=== PATIENT | female | born 1930 | race Caucasian/White ===

== ENCOUNTER 2018-01-15 22:37 | Inpatient (IN) ==
[2018-01-16] MEDS ORDERED: SODIUM CHLORIDE 0.9% 1,000 ML IV STA (00:13)
[2018-01-16] MEDS ORDERED: DILTIAZEM 50 MG/10 ML VIAL IV STA (00:14)
[2018-01-16 00:30] LABS: INR 1.8; PT Patient Result 18.7 SECS; Partial Thromboplastin Time 31.8 SECS (0-40)
[2018-01-16 00:41] LABS: Alanine Aminotransferase 18 U/L (13-56); Albumin 3.3 G/DL (3.4-5.0); Alkaline Phosphatase 115 U/L (45-117); Aspartate Amino Transferase 23 U/L (0-37); Bilirubin,Total < 0.39 MG/DL (0.2-1.0); Blood Urea Nitrogen 18 MG/DL (7-18); Calcium 8.8 MG/DL (8.5-10.1); Glucose 136 MG/DL (74-106); Osmolality,Calculated 286.1 MOS/KG (273-304); Potassium 3.7 MMOL/L (3.5-5.1); Sodium 142 MMOL/L (136-145); Total Protein 7.2 G/DL (6.4-8.3); Troponin I Only < 0.015 NG/ML (0.00-0.045)
[2018-01-16 00:42] LABS: Basophils # 0.1 10*3/uL (0.0-0.2); Basophils % 0.7 % (0.0-0.8); Eosinophils # 0.1 10*3/uL (0.0-0.87); Hematocrit 36.2 VOL% (35.7-47.0); Hemoglobin 11.3 GM/DL (12.0-16.0); Immature Granulocytes % 0.6 %; Immature Granulocytes Absolute 0.04 #; Lymphocytes # 1.3 10*3/uL (1.4-4.0); Lymphocytes % 17.7 % (21.3-54.2); Mean Corpuscular HGB Conc 31.2 GM/DL (32-36); Mean Corpuscular Hemoglobin 25 PG (27-34); Mean Corpuscular Volume 80.6 FL (87-102); Mean Platelet Volume 10.3 FL (9.6-12.0); Monocytes # 0.7 10*3/uL (0.11-0.8); Monocytes % 9.6 % (1.7-12.7); Neutrophils % 70.4 % (38.7-73.9); Platelet Count 314 T/CUMM (130-400); Red Blood Count 4.49 MC/CUMM (3.8-5.5); Red Cell Distribution Width 18.2 % (9.3-17.3); White Blood Count 7.1 T/CUMM (4-12)
[2018-01-16] MEDS ORDERED: DILTIAZEM 50 MG/10 ML VIAL IV ONE (00:58)
[2018-01-16] MEDS ORDERED: ONDANSETRON 4 MG/2 ML VIAL IV PRN (02:19)
[2018-01-16] MEDS ORDERED: ACETAMINOPHEN 325 MG TABLET PO PRN (02:19)
[2018-01-16] MEDS: DILTIAZEM 30 MG TABLET PO SCH ×4 (05:57→23:44)
[2018-01-16] MEDS: LEVOTHYROXINE 25 MCG TABLET PO SCH (05:57)
[2018-01-16 06:06] LABS: Basophils % 0.7 % (0.0-0.8); Eosinophils # 0.1 10*3/uL (0.0-0.87); Eosinophils % 1.7 % (0.00-10.9); Hematocrit 31.8 VOL% (35.7-47.0); Hemoglobin 9.7 GM/DL (12.0-16.0); Immature Granulocytes % 0.3 %; Immature Granulocytes Absolute 0.02 #; Lymphocytes # 1.1 10*3/uL (1.4-4.0); Lymphocytes % 17.8 % (21.3-54.2); Mean Corpuscular HGB Conc 30.5 GM/DL (32-36); Mean Corpuscular Hemoglobin 25 PG (27-34); Mean Corpuscular Volume 80.9 FL (87-102); Mean Platelet Volume 9.6 FL (9.6-12.0); Monocytes # 0.6 10*3/uL (0.11-0.8); Monocytes % 10.1 % (1.7-12.7); Neutrophils # 4.1 10*3/uL (1.4-7.4); Neutrophils % 69.4 % (38.7-73.9); Platelet Count 263 T/CUMM (130-400); Red Blood Count 3.93 MC/CUMM (3.8-5.5)
[2018-01-16 06:26] LABS: INR 1.8; PT Patient Result 18.5 SECS
[2018-01-16 06:44] LABS: Albumin 2.9 G/DL (3.4-5.0); Bilirubin,Total 0.5 MG/DL (0.2-1.0); Calcium 8.1 MG/DL (8.5-10.1); Osmolality,Calculated 290.6 MOS/KG (273-304); Potassium 3.9 MMOL/L (3.5-5.1); Total Protein 6.2 G/DL (6.4-8.3)
[2018-01-16] MEDS: METOPROLOL TARTRATE 25 MG TABLET PO SCH ×2 (09:52→20:27)
[2018-01-16] MEDS: PANTOPRAZOLE 40 MG TABLET PO SCH (09:52)
[2018-01-16] MEDS: DIGOXIN 0.125 MG TABLET PO SCH (17:26)
[2018-01-17 05:24] LABS: Basophils # 0.1 10*3/uL (0.0-0.2); Basophils % 0.9 % (0.0-0.8); Eosinophils # 0.2 10*3/uL (0.0-0.87); Eosinophils % 3.7 % (0.00-10.9); Hematocrit 30.1 VOL% (35.7-47.0); Hemoglobin 9.3 GM/DL (12.0-16.0); Immature Granulocytes % 0.2 %; Immature Granulocytes Absolute 0.01 #; Lymphocytes # 1.4 10*3/uL (1.4-4.0); Lymphocytes % 24.2 % (21.3-54.2); Mean Corpuscular HGB Conc 30.9 GM/DL (32-36); Mean Corpuscular Hemoglobin 25 PG (27-34); Mean Corpuscular Volume 80.3 FL (87-102); Mean Platelet Volume 10.2 FL (9.6-12.0); Monocytes # 0.6 10*3/uL (0.11-0.8); Monocytes % 10.3 % (1.7-12.7); Neutrophils # 3.4 10*3/uL (1.4-7.4); Neutrophils % 60.7 % (38.7-73.9); Platelet Count 244 T/CUMM (130-400); Red Blood Count 3.75 MC/CUMM (3.8-5.5); Red Cell Distribution Width 18.6 % (9.3-17.3); White Blood Count 5.6 T/CUMM (4-12)
[2018-01-17 05:30] LABS: INR 1.7; PT Patient Result 18.1 SECS
[2018-01-17] MEDS: DILTIAZEM 30 MG TABLET PO SCH ×3 (05:36→18:09)
[2018-01-17] MEDS: LEVOTHYROXINE 25 MCG TABLET PO SCH (05:36)
[2018-01-17 05:42] LABS: Osmolality,Calculated 291.4 MOS/KG (273-304); Potassium 3.8 MMOL/L (3.5-5.1)
[2018-01-17] MEDS: DIGOXIN 0.125 MG TABLET PO SCH (09:09)
[2018-01-17] MEDS: PANTOPRAZOLE 40 MG TABLET PO SCH (09:10)
[2018-01-17] MEDS: METOPROLOL TARTRATE 25 MG TABLET PO SCH ×2 (09:10→21:32)
[2018-01-18] MEDS: DILTIAZEM 30 MG TABLET PO SCH ×5 (01:56→23:28)
[2018-01-18] MEDS: LEVOTHYROXINE 25 MCG TABLET PO SCH (05:22)
[2018-01-18 05:55] LABS: INR 1.7; PT Patient Result 17.3 SECS
[2018-01-18] MEDS: PANTOPRAZOLE 40 MG TABLET PO SCH (08:37)
[2018-01-18] MEDS: DIGOXIN 0.125 MG TABLET PO SCH (08:37)
[2018-01-18] MEDS: METOPROLOL TARTRATE 25 MG TABLET PO SCH ×2 (08:37→21:29)
[2018-01-19 04:51] LABS: Basophils % 0.6 % (0.0-0.8); Eosinophils # 0.2 10*3/uL (0.0-0.87); Eosinophils % 3.4 % (0.00-10.9); Hematocrit 29.4 VOL% (35.7-47.0); Hemoglobin 9.2 GM/DL (12.0-16.0); Immature Granulocytes % 0.4 %; Immature Granulocytes Absolute 0.03 #; Lymphocytes # 1.6 10*3/uL (1.4-4.0); Lymphocytes % 22.8 % (21.3-54.2); Mean Corpuscular HGB Conc 30.6 GM/DL (32-36); Mean Corpuscular Hemoglobin 25 PG (27-34); Mean Corpuscular Volume 80.1 FL (87-102); Mean Platelet Volume 9.7 FL (9.6-12.0); Monocytes # 0.7 10*3/uL (0.11-0.8); Monocytes % 10.3 % (1.7-12.7); Neutrophils # 4.5 10*3/uL (1.4-7.4); Neutrophils % 62.5 % (38.7-73.9); Platelet Count 258 T/CUMM (130-400); Red Blood Count 3.67 MC/CUMM (3.8-5.5); Red Cell Distribution Width 18.6 % (9.3-17.3); White Blood Count 7.1 T/CUMM (4-12)
[2018-01-19 05:21] LABS: Alanine Aminotransferase 16 U/L (13-56); Albumin 2.7 G/DL (3.4-5.0); Alkaline Phosphatase 94 U/L (45-117); Aspartate Amino Transferase 20 U/L (0-37); Bilirubin,Total < 0.39 MG/DL (0.2-1.0); Blood Urea Nitrogen 17 MG/DL (7-18); Calcium 8.2 MG/DL (8.5-10.1); Glucose 115 MG/DL (74-106); Osmolality,Calculated 292.6 MOS/KG (273-304); Potassium 3.4 MMOL/L (3.5-5.1); Sodium 146 MMOL/L (136-145); Total Protein 5.7 G/DL (6.4-8.3)
[2018-01-19] MEDS: DILTIAZEM 30 MG TABLET PO SCH ×2 (05:26→12:12)
[2018-01-19] MEDS: LEVOTHYROXINE 25 MCG TABLET PO SCH (05:27)
[2018-01-19] MEDS ORDERED: POTASSIUM CHLORIDE 20 MEQ TABLET PO ONE (07:06)
[2018-01-19] MEDS: DIGOXIN 0.125 MG TABLET PO SCH (08:29)
[2018-01-19] MEDS: PANTOPRAZOLE 40 MG TABLET PO SCH (08:29)
[2018-01-19] MEDS: METOPROLOL TARTRATE 25 MG TABLET PO SCH (08:29)
[2018-01-19 11:34] VITALS: BP 122/56
== END 2018-01-19 13:55 | disposition home or self-care (01) | DRG 813 ==
LOC: N.ED 22:37 → SUATTDRO 01-16 02:19 → N.EDINP 01-16 02:19 → N.TELES 01-16 04:42
PROVIDERS: ADMIT Internal Medicine; ATTEND Internal Medicine

== ENCOUNTER 2018-12-22 23:16 | Inpatient (IN) ==
[2018-12-23 00:12] LABS: Basophils % 0.2 % (0.0-0.8); Eosinophils # 0.1 10*3/uL (0.0-0.87); Eosinophils % 0.6 % (0.00-10.9); Hematocrit 36.9 VOL% (35.7-47.0); Hemoglobin 11.6 GM/DL (12.0-16.0); Immature Granulocytes % 0.6 %; Immature Granulocytes Absolute 0.05 #; Lymphocytes # 0.7 10*3/uL (1.4-4.0); Lymphocytes % 7.5 % (21.3-54.2); Mean Corpuscular HGB Conc 31.4 GM/DL (32-36); Mean Corpuscular Hemoglobin 27 PG (27-34); Mean Corpuscular Volume 84.6 FL (87-102); Mean Platelet Volume 9.3 FL (9.6-12.0); Monocytes # 0.6 10*3/uL (0.11-0.8); Monocytes % 6.8 % (1.7-12.7); Neutrophils # 7.3 10*3/uL (1.4-7.4); Neutrophils % 84.3 % (38.7-73.9); Platelet Count 286 T/CUMM (130-400); Red Blood Count 4.36 MC/CUMM (3.8-5.5); Red Cell Distribution Width 16.1 % (9.3-17.3); White Blood Count 8.6 T/CUMM (4-12)
[2018-12-23 00:18] LABS: Alanine Aminotransferase 16 U/L (13-56); Albumin 3.1 G/DL (3.4-5.0); Alkaline Phosphatase 92 U/L (45-117); Aspartate Amino Transferase 17 U/L (0-37); Blood Urea Nitrogen 13 MG/DL (7-18); Calcium 8.9 MG/DL (8.5-10.1); Glucose 159 MG/DL (74-106); Potassium 3.2 MMOL/L (3.5-5.1); Sodium 136 MMOL/L (136-145); Total Protein 7.5 G/DL (6.4-8.3)
[2018-12-23 00:21] LABS: INR 2.3; Partial Thromboplastin Time 33.1 SECS (0-40)
[2018-12-23 00:31] LABS: PT Patient Result 24.8 SECS
[2018-12-23] MEDS ORDERED: ACETAMINOPHEN 500 MG TABLET PO STA (00:40)
[2018-12-23] MEDS ORDERED: SODIUM CHLORIDE 0.9% 1,000 ML IV STA ×2 (00:40→02:44)
[2018-12-23] MEDS ORDERED: POTASSIUM CHLORIDE 20 MEQ PACK PO STA (01:44)
[2018-12-23 02:19] LABS: Apearance,Urine CLEAR (Clear); Bilirubin,Urine Negative (Negative); Blood, Urine Negative (Negative); Glucose,Urine (UA) Negative (Negative); Hyaline Casts,Urine 4 /LPF (0-3); Ketones,Urine Negative (Negative); Mucus,Urine Occasional /LPF (Occasional); Nitrite,Urine Negative (Negative); Protein,Urine Negative; RBC,Urine 1 /HPF (0-4); Urine Color Yellow (Yellow); Urine Urobilinogen < 2.0 EU/DL (0.2-1.0); WBC,Urine 1 /HPF (0-6)
[2018-12-23] MEDS ORDERED: ACETAMINOPHEN 325 MG TABLET PO PRN (04:36)
[2018-12-23] MEDS ORDERED: MAGNESIUM SULF RIDER 2 GM in PREMIX 1 EACH IV ONE (04:36)
[2018-12-23] MEDS: SODIUM CHLORIDE 0.9% 1,000 ML IV SCH ×2 (04:57→16:11)
[2018-12-23] MEDS ORDERED: cefTRIAXone 1,000 MG in SYRINGE 1 EACH IV SCH (05:00)
[2018-12-23] MEDS: ASPIRIN EC 81 MG TABLET PO SCH (08:35)
[2018-12-23] MEDS: METOPROLOL TARTRATE 25 MG TABLET PO SCH ×2 (08:36→21:04)
[2018-12-23] MEDS ORDERED: AZITHROMYCIN 250 MG TABLET PO SCH (09:00)
[2018-12-23] MEDS: POTASSIUM CHLORIDE 20 MEQ TABLET PO SCH ×2 (11:40→20:42)
[2018-12-23] MEDS ORDERED: DIGOXIN 0.125 MG TABLET PO SCH (13:00)
[2018-12-23] MEDS ORDERED: WARFARIN 2.5 MG TABLET PO SCH (18:00)
[2018-12-23] MEDS ORDERED: LORATADINE 10 MG TABLET PO ONE (20:24)
[2018-12-24 06:11] LABS: Basophils % 0.4 % (0.0-0.8); Eosinophils # 0.1 10*3/uL (0.0-0.87); Eosinophils % 1.4 % (0.00-10.9); Hematocrit 29.3 VOL% (35.7-47.0); Hemoglobin 9.2 GM/DL (12.0-16.0); Immature Granulocytes % 0.6 %; Immature Granulocytes Absolute 0.03 #; Lymphocytes # 1.2 10*3/uL (1.4-4.0); Lymphocytes % 23.2 % (21.3-54.2); Mean Corpuscular HGB Conc 31.4 GM/DL (32-36); Mean Corpuscular Hemoglobin 27 PG (27-34); Mean Corpuscular Volume 86.2 FL (87-102); Mean Platelet Volume 9.9 FL (9.6-12.0); Monocytes # 0.6 10*3/uL (0.11-0.8); Monocytes % 12.7 % (1.7-12.7); Neutrophils # 3.1 10*3/uL (1.4-7.4); Neutrophils % 61.7 % (38.7-73.9); Platelet Count 225 T/CUMM (130-400); Red Cell Distribution Width 16.6 % (9.3-17.3)
[2018-12-24 06:19] LABS: INR 1.9; PT Patient Result 20.1 SECS; Partial Thromboplastin Time 33.2 SECS (0-40)
[2018-12-24] MEDS: SODIUM CHLORIDE 0.9% 1,000 ML IV SCH ×2 (06:24→23:31)
[2018-12-24 06:43] LABS: Calcium 7.5 MG/DL (8.5-10.1); Potassium 3.3 MMOL/L (3.5-5.1)
[2018-12-24] MEDS: POTASSIUM CHLORIDE 20 MEQ TABLET PO SCH ×2 (08:51→20:39)
[2018-12-24] MEDS: ASPIRIN EC 81 MG TABLET PO SCH (08:51)
[2018-12-24] MEDS: LEVOTHYROXINE 25 MCG TABLET PO SCH (08:51)
[2018-12-24] MEDS: METOPROLOL TARTRATE 25 MG TABLET PO SCH ×2 (08:51→20:38)
[2018-12-24] MEDS ORDERED: NON-FORMULARY MEDICATION (Potassium Chloride [Potassium Chloride] 10 MEQ) PO SCH (09:00)
[2018-12-24] MEDS: PIPERACILLIN/TAZOBACTAM 3,375 MG in SODIUM CHLORIDE 0.9% 100 ML IV SCH ×2 (11:13→18:29)
[2018-12-24] MEDS: DIGOXIN 0.125 MG TABLET PO SCH (13:42)
[2018-12-24] MEDS: WARFARIN 2.5 MG TABLET PO SCH (17:34)
[2018-12-25] MEDS: PIPERACILLIN/TAZOBACTAM 3,375 MG in SODIUM CHLORIDE 0.9% 100 ML IV SCH (02:42)
[2018-12-25] MEDS: SODIUM CHLORIDE 0.9% 1,000 ML IV SCH ×2 (02:42→18:56)
[2018-12-25 05:15] LABS: Basophils % 0.4 % (0.0-0.8); Eosinophils # 0.2 10*3/uL (0.0-0.87); Hematocrit 31.8 VOL% (35.7-47.0); Hemoglobin 9.7 GM/DL (12.0-16.0); Immature Granulocytes % 0.2 %; Immature Granulocytes Absolute 0.01 #; Lymphocytes # 1.1 10*3/uL (1.4-4.0); Lymphocytes % 22.1 % (21.3-54.2); Mean Corpuscular HGB Conc 30.5 GM/DL (32-36); Mean Corpuscular Hemoglobin 27 PG (27-34); Mean Corpuscular Volume 86.9 FL (87-102); Mean Platelet Volume 9.2 FL (9.6-12.0); Monocytes # 0.6 10*3/uL (0.11-0.8); Monocytes % 12.6 % (1.7-12.7); Neutrophils # 2.9 10*3/uL (1.4-7.4); Neutrophils % 59.7 % (38.7-73.9); Platelet Count 231 T/CUMM (130-400); Red Blood Count 3.66 MC/CUMM (3.8-5.5); White Blood Count 4.8 T/CUMM (4-12)
[2018-12-25 05:18] LABS: INR 1.6; PT Patient Result 17.8 SECS
[2018-12-25 05:27] LABS: Calcium 8.1 MG/DL (8.5-10.1); Osmolality,Calculated 277.4 MOS/KG (273-304); Potassium 3.7 MMOL/L (3.5-5.1)
[2018-12-25] MEDS: LEVOTHYROXINE 25 MCG TABLET PO SCH (05:56)
[2018-12-25] MEDS: POTASSIUM CHLORIDE 20 MEQ TABLET PO SCH ×3 (09:11→20:52)
[2018-12-25] MEDS: METOPROLOL TARTRATE 25 MG TABLET PO SCH ×2 (09:11→20:51)
[2018-12-25] MEDS: ASPIRIN EC 81 MG TABLET PO SCH (09:11)
[2018-12-25] MEDS: DIGOXIN 0.125 MG TABLET PO SCH (12:19)
[2018-12-25] MEDS: WARFARIN 2.5 MG TABLET PO SCH (17:56)
[2018-12-26] MEDS: SODIUM CHLORIDE 0.9% 1,000 ML IV SCH ×2 (01:10→17:44)
[2018-12-26] MEDS: LEVOTHYROXINE 25 MCG TABLET PO SCH (05:30)
[2018-12-26] MEDS: METOPROLOL TARTRATE 25 MG TABLET PO SCH ×2 (08:14→20:22)
[2018-12-26] MEDS: POTASSIUM CHLORIDE 20 MEQ TABLET PO SCH ×2 (08:14→20:22)
[2018-12-26] MEDS: ASPIRIN EC 81 MG TABLET PO SCH (08:14)
[2018-12-26] MEDS: DIGOXIN 0.125 MG TABLET PO SCH (15:23)
[2018-12-26] MEDS: WARFARIN 2.5 MG TABLET PO SCH (17:44)
[2018-12-26] MEDS ORDERED: WARFARIN 2.5 MG TABLET PO SCH (18:00)
[2018-12-27] MEDS: LORATADINE 10 MG TABLET PO PRN (03:25)
[2018-12-27] MEDS: LEVOTHYROXINE 25 MCG TABLET PO SCH (06:21)
[2018-12-27] MEDS: SODIUM CHLORIDE 0.9% 1,000 ML IV SCH ×2 (07:15→22:31)
[2018-12-27] MEDS: METOPROLOL TARTRATE 25 MG TABLET PO SCH ×2 (08:26→20:29)
[2018-12-27] MEDS: ASPIRIN EC 81 MG TABLET PO SCH (08:26)
[2018-12-27] MEDS: POTASSIUM CHLORIDE 20 MEQ TABLET PO SCH ×2 (08:26→20:29)
[2018-12-27] MEDS ORDERED: LORazepam 2 MG/1 ML VIAL IV ONE (12:00)
[2018-12-27] MEDS: DIGOXIN 0.125 MG TABLET PO SCH (13:22)
[2018-12-27] MEDS: WARFARIN 2.5 MG TABLET PO SCH (17:59)
[2018-12-27] MEDS: DONEPEZIL 5 MG TABLET PO SCH (20:29)
[2018-12-28] MEDS: LEVOTHYROXINE 25 MCG TABLET PO SCH (06:10)
[2018-12-28] MEDS: POTASSIUM CHLORIDE 20 MEQ TABLET PO SCH ×2 (08:42→20:39)
[2018-12-28] MEDS: ASPIRIN EC 81 MG TABLET PO SCH (08:43)
[2018-12-28] MEDS: METOPROLOL TARTRATE 25 MG TABLET PO SCH ×2 (08:43→20:39)
[2018-12-28] MEDS: SODIUM CHLORIDE 0.9% 1,000 ML IV SCH (11:45)
[2018-12-28 12:08] LABS: Hematocrit 32.8 VOL% (35.7-47.0); Hemoglobin 10.2 GM/DL (12.0-16.0)
[2018-12-28] MEDS: DIGOXIN 0.125 MG TABLET PO SCH (13:04)
[2018-12-28] MEDS ORDERED: DIGOXIN 0.5 MG/2 ML AMP IV ONE (15:32)
[2018-12-28 17:42] LABS: Basophils % 0.5 % (0.0-0.8); Eosinophils # 0.1 10*3/uL (0.0-0.87); Eosinophils % 1.8 % (0.00-10.9); Hematocrit 31.7 VOL% (35.7-47.0); Hemoglobin 9.7 GM/DL (12.0-16.0); Immature Granulocytes % 0.5 %; Immature Granulocytes Absolute 0.03 #; Lymphocytes # 1.1 10*3/uL (1.4-4.0); Lymphocytes % 18.3 % (21.3-54.2); Mean Corpuscular HGB Conc 30.6 GM/DL (32-36); Mean Corpuscular Hemoglobin 27 PG (27-34); Mean Corpuscular Volume 87.6 FL (87-102); Mean Platelet Volume 9.1 FL (9.6-12.0); Monocytes # 0.6 10*3/uL (0.11-0.8); Monocytes % 10.1 % (1.7-12.7); Neutrophils # 4.3 10*3/uL (1.4-7.4); Neutrophils % 68.8 % (38.7-73.9); Platelet Count 250 T/CUMM (130-400); Red Blood Count 3.62 MC/CUMM (3.8-5.5); Red Cell Distribution Width 16.9 % (9.3-17.3); White Blood Count 6.2 T/CUMM (4-12)
[2018-12-28 17:52] LABS: INR 1.9; PT Patient Result 20.1 SECS
[2018-12-28 18:05] LABS: Calcium 7.9 MG/DL (8.5-10.1); Osmolality,Calculated 275.5 MOS/KG (273-304); Potassium 4.1 MMOL/L (3.5-5.1)
[2018-12-28] MEDS: WARFARIN 2.5 MG TABLET PO SCH (18:12)
[2018-12-28] MEDS: DONEPEZIL 5 MG TABLET PO SCH (20:39)
[2018-12-29] MEDS: LORATADINE 10 MG TABLET PO PRN (04:05)
[2018-12-29] MEDS: LEVOTHYROXINE 25 MCG TABLET PO SCH (05:36)
[2018-12-29 06:21] LABS: INR 1.9
[2018-12-29 06:27] LABS: PT Patient Result 20.2 SECS
[2018-12-29 06:32] LABS: Basophils % 0.4 % (0.0-0.8); Eosinophils # 0.2 10*3/uL (0.0-0.87); Eosinophils % 3.1 % (0.00-10.9); Hematocrit 30.7 VOL% (35.7-47.0); Hemoglobin 9.4 GM/DL (12.0-16.0); Immature Granulocytes % 0.4 %; Immature Granulocytes Absolute 0.02 #; Lymphocytes # 1.1 10*3/uL (1.4-4.0); Lymphocytes % 20.4 % (21.3-54.2); Mean Corpuscular HGB Conc 30.6 GM/DL (32-36); Mean Corpuscular Hemoglobin 26 PG (27-34); Mean Corpuscular Volume 86.2 FL (87-102); Mean Platelet Volume 9.7 FL (9.6-12.0); Monocytes # 0.6 10*3/uL (0.11-0.8); Monocytes % 9.9 % (1.7-12.7); Neutrophils # 3.7 10*3/uL (1.4-7.4); Neutrophils % 65.8 % (38.7-73.9); Platelet Count 261 T/CUMM (130-400); Red Blood Count 3.56 MC/CUMM (3.8-5.5); Red Cell Distribution Width 16.8 % (9.3-17.3); White Blood Count 5.5 T/CUMM (4-12)
[2018-12-29 06:36] LABS: Calcium 7.8 MG/DL (8.5-10.1); Osmolality,Calculated 274.5 MOS/KG (273-304); Potassium 3.9 MMOL/L (3.5-5.1)
[2018-12-29] MEDS: METOPROLOL TARTRATE 25 MG TABLET PO SCH ×2 (09:40→21:22)
[2018-12-29] MEDS: ASPIRIN EC 81 MG TABLET PO SCH (09:40)
[2018-12-29] MEDS: POTASSIUM CHLORIDE 20 MEQ TABLET PO SCH ×2 (09:40→21:22)
[2018-12-29] MEDS: DIGOXIN 0.25 MG TABLET PO SCH (13:00)
[2018-12-29] MEDS: WARFARIN 2.5 MG TABLET PO SCH (17:23)
[2018-12-29] MEDS: DONEPEZIL 5 MG TABLET PO SCH (21:21)
[2018-12-29] MEDS: AMOXICILLIN/CLAV 875 MG TABLET PO SCH (21:21)
[2018-12-29] MEDS: guaiFENesin 200 MG/10 ML UDCUP PO PRN (23:18)
[2018-12-30] MEDS: LEVOTHYROXINE 25 MCG TABLET PO SCH (05:37)
[2018-12-30] MEDS: ASPIRIN EC 81 MG TABLET PO SCH (08:22)
[2018-12-30] MEDS: POTASSIUM CHLORIDE 20 MEQ TABLET PO SCH ×2 (08:22→20:36)
[2018-12-30] MEDS: AMOXICILLIN/CLAV 875 MG TABLET PO SCH ×2 (08:22→20:35)
[2018-12-30] MEDS: METOPROLOL TARTRATE 25 MG TABLET PO SCH (08:22)
[2018-12-30] MEDS: guaiFENesin 200 MG/10 ML UDCUP PO PRN ×2 (08:23→20:48)
[2018-12-30] MEDS: DILTIAZEM CD 120 MG CAPSULE PO SCH ×2 (10:05→20:35)
[2018-12-30] MEDS: DIGOXIN 0.25 MG TABLET PO SCH (12:13)
[2018-12-30] MEDS: WARFARIN 2.5 MG TABLET PO SCH (17:02)
[2018-12-30] MEDS: DONEPEZIL 5 MG TABLET PO SCH (20:36)
[2018-12-31] MEDS: LEVOTHYROXINE 25 MCG TABLET PO SCH (07:22)
[2018-12-31] MEDS: DILTIAZEM CD 120 MG CAPSULE PO SCH ×2 (09:43→22:17)
[2018-12-31] MEDS: AMOXICILLIN/CLAV 875 MG TABLET PO SCH ×2 (09:43→22:15)
[2018-12-31] MEDS: ASPIRIN EC 81 MG TABLET PO SCH (09:44)
[2018-12-31] MEDS: POTASSIUM CHLORIDE 20 MEQ TABLET PO SCH ×2 (09:44→22:15)
[2018-12-31] MEDS ORDERED: ALBUTEROL/IPRATROPIUM 3 ML NEB RESP TX PRN (11:31)
[2018-12-31] MEDS: ALBUTEROL/IPRATROPIUM 3 ML NEB RESP TX SCH ×2 (12:30→19:40)
[2018-12-31] MEDS: DIGOXIN 0.25 MG TABLET PO SCH (13:22)
[2018-12-31] MEDS: predniSONE 20 MG TABLET PO SCH (15:02)
[2018-12-31] MEDS: WARFARIN 2.5 MG TABLET PO SCH (17:10)
[2018-12-31] MEDS: DONEPEZIL 5 MG TABLET PO SCH (22:15)
[2018-12-31] MEDS: guaiFENesin 200 MG/10 ML UDCUP PO PRN (22:42)
[2019-01-01] MEDS: ALBUTEROL/IPRATROPIUM 3 ML NEB RESP TX SCH ×4 (01:13→19:01)
[2019-01-01] MEDS: LEVOTHYROXINE 25 MCG TABLET PO SCH (06:08)
[2019-01-01 08:33] LABS: INR 2.3; PT Patient Result 25.3 SECS
[2019-01-01] MEDS: predniSONE 20 MG TABLET PO SCH (08:47)
[2019-01-01] MEDS: POTASSIUM CHLORIDE 20 MEQ TABLET PO SCH ×2 (08:47→20:35)
[2019-01-01] MEDS: ASPIRIN EC 81 MG TABLET PO SCH (08:47)
[2019-01-01] MEDS: DILTIAZEM CD 120 MG CAPSULE PO SCH ×2 (08:47→20:36)
[2019-01-01] MEDS: AMOXICILLIN/CLAV 875 MG TABLET PO SCH ×2 (08:48→20:35)
[2019-01-01] MEDS: DIGOXIN 0.25 MG TABLET PO SCH (13:28)
[2019-01-01] MEDS ORDERED: DIGOXIN 0.125 MG TABLET PO SCH (17:08)
[2019-01-01] MEDS: WARFARIN 2.5 MG TABLET PO SCH (17:20)
[2019-01-01] MEDS: DONEPEZIL 5 MG TABLET PO SCH (20:36)
[2019-01-02] MEDS: ALBUTEROL/IPRATROPIUM 3 ML NEB RESP TX SCH ×2 (00:01→07:05)
[2019-01-02 05:37] LABS: Calcium 9.5 MG/DL (8.5-10.1); Osmolality,Calculated 279.5 MOS/KG (273-304); Potassium 5.2 MMOL/L (3.5-5.1)
[2019-01-02 05:42] LABS: Basophils % 0.1 % (0.0-0.8); Eosinophils % 0.1 % (0.00-10.9); Hematocrit 29.2 VOL% (35.7-47.0); Hemoglobin 9.3 GM/DL (12.0-16.0); Immature Granulocytes % 0.5 %; Immature Granulocytes Absolute 0.04 #; Lymphocytes # 0.8 10*3/uL (1.4-4.0); Lymphocytes % 9.5 % (21.3-54.2); Mean Corpuscular HGB Conc 31.8 GM/DL (32-36); Mean Corpuscular Hemoglobin 27 PG (27-34); Mean Corpuscular Volume 84.6 FL (87-102); Mean Platelet Volume 9.4 FL (9.6-12.0); Monocytes # 0.8 10*3/uL (0.11-0.8); Monocytes % 8.8 % (1.7-12.7); Platelet Count 380 T/CUMM (130-400); Red Blood Count 3.45 MC/CUMM (3.8-5.5); Red Cell Distribution Width 17.1 % (9.3-17.3); White Blood Count 8.6 T/CUMM (4-12)
[2019-01-02] MEDS: LEVOTHYROXINE 25 MCG TABLET PO SCH (05:42)
[2019-01-02 07:24] VITALS: BP 125/59
[2019-01-02 08:26] LABS: INR 2.8
[2019-01-02] MEDS: ASPIRIN EC 81 MG TABLET PO SCH (09:29)
[2019-01-02] MEDS: DILTIAZEM CD 120 MG CAPSULE PO SCH (09:29)
[2019-01-02] MEDS: AMOXICILLIN/CLAV 875 MG TABLET PO SCH (09:29)
[2019-01-02] MEDS: predniSONE 20 MG TABLET PO SCH (09:31)
[2019-01-02] MEDS: POTASSIUM CHLORIDE 20 MEQ TABLET PO SCH (09:31)
== END 2019-01-02 13:20 | disposition swing bed (61) | DRG 948 ==
LOC: N.EDINP 23:16 → N.ED 23:16 → SUATTDRO 12-23 03:40 → N.2E 12-23 04:01
PROVIDERS: ADMIT Internal Medicine; ATTEND Internal Medicine

== ENCOUNTER 2020-01-14 17:08 | Inpatient (IN) ==
[2020-01-14 18:32] LABS: Basophils % 0.6 % (0.0-0.8); Eosinophils # 0.1 10*3/uL (0.0-0.87); Hematocrit 40.7 VOL% (35.7-47.0); Immature Granulocytes % 0.4 %; Immature Granulocytes Absolute 0.03 #; Lymphocytes # 1.2 10*3/uL (1.4-4.0); Lymphocytes % 16.8 % (21.3-54.2); Mean Corpuscular HGB Conc 31.9 GM/DL (32-36); Mean Platelet Volume 9.6 FL (9.6-12.0); Monocytes % 5.8 % (1.7-12.7); Neutrophils % 75.4 % (38.7-73.9); Platelet Count 232 T/CUMM (130-400); Red Blood Count 4.33 MC/CUMM (3.8-5.5); Red Cell Distribution Width 13.6 % (9.3-17.3); White Blood Count 6.9 T/CUMM (4-12)
[2020-01-14 18:44] LABS: Alanine Aminotransferase 14 U/L (13-56); Albumin 2.8 G/DL (3.4-5.0); Alkaline Phosphatase 101 U/L (45-117); Aspartate Amino Transferase 16 U/L (0-37); Bilirubin,Total < 0.39 MG/DL (0.2-1.0); Blood Urea Nitrogen 12 MG/DL (7-18); Calcium 8.6 MG/DL (8.5-10.1); Estimated Glom Filtration Rate 38 ML/MIN; Glucose 181 MG/DL (74-106); Osmolality,Calculated 283.4 MOS/KG (273-304)
[2020-01-14 18:46] LABS: INR 2.3; Partial Thromboplastin Time 37.9 SECS (23.9-33.8)
[2020-01-14] MEDS ORDERED: SODIUM CHLORIDE 0.9% 1,000 ML IV STA (19:27)
[2020-01-14 19:30] LABS: PT Patient Result 23.4 SECS (9.8-11.9)
[2020-01-15 01:06] LABS: Hemoglobin 10.8 GM/DL (12.0-16.0)
[2020-01-15] MEDS ORDERED: GLUCAGON 1 MG VIAL IM PRN (01:39)
[2020-01-15] MEDS ORDERED: ONDANSETRON 4 MG/2 ML VIAL IV PRN (01:39)
[2020-01-15] MEDS ORDERED: DEXTROSE 10% 250 ML BAG IV PRN (01:41)
[2020-01-15] MEDS: SODIUM CHLORIDE 0.9% 1,000 ML IV SCH ×5 (02:11→16:56)
[2020-01-15] MEDS: PANTOPRAZOLE 40 MG VIAL IV SCH ×3 (02:16→21:04)
[2020-01-15 06:55] LABS: INR 2.1; PT Patient Result 21.5 SECS (9.8-11.9); Partial Thromboplastin Time 32.6 SECS (23.9-33.8)
[2020-01-15 07:11] LABS: Hemoglobin 8.3 GM/DL (12.0-16.0)
[2020-01-15 07:14] LABS: Albumin 2.1 G/DL (3.4-5.0); Bilirubin,Total 0.6 MG/DL (0.2-1.0); Calcium 7.6 MG/DL (8.5-10.1); Osmolality,Calculated 288.8 MOS/KG (273-304)
[2020-01-15] MEDS: LEVOTHYROXINE 25 MCG TABLET PO SCH (08:20)
[2020-01-15] MEDS: DILTIAZEM CD 180 MG CAPSULE PO SCH (08:20)
[2020-01-15] MEDS ORDERED: SODIUM CHLORIDE 0.9% 1,000 ML IV PRN ×2 (09:50→21:10)
[2020-01-15] MEDS: DIGOXIN 0.125 MG TABLET PO SCH (12:10)
[2020-01-15 14:04] LABS: Hematocrit 27.5 VOL% (35.7-47.0); Hemoglobin 9.2 GM/DL (12.0-16.0)
[2020-01-15 19:47] LABS: Hematocrit 25.3 VOL% (35.7-47.0); Hemoglobin 7.9 GM/DL (12.0-16.0)
[2020-01-16] MEDS: SODIUM CHLORIDE 0.9% 1,000 ML IV SCH ×3 (02:37→19:11)
[2020-01-16 03:48] LABS: Hematocrit 25.5 VOL% (35.7-47.0); Hemoglobin 8.5 GM/DL (12.0-16.0)
[2020-01-16 05:10] LABS: INR 2.1; PT Patient Result 21.8 SECS (9.8-11.9)
[2020-01-16] MEDS: LEVOTHYROXINE 25 MCG TABLET PO SCH (06:38)
[2020-01-16 07:35] LABS: Basophils % 0.5 % (0.0-0.8); Eosinophils # 0.2 10*3/uL (0.0-0.87); Eosinophils % 2.3 % (0.00-10.9); Immature Granulocytes % 0.7 %; Immature Granulocytes Absolute 0.06 #; Lymphocytes # 2.4 10*3/uL (1.4-4.0); Lymphocytes % 29.7 % (21.3-54.2); Mean Corpuscular HGB Conc 33.3 GM/DL (32-36); Mean Corpuscular Volume 93.1 FL (87-102); Mean Platelet Volume 9.4 FL (9.6-12.0); Monocytes % 9.5 % (1.7-12.7); Neutrophils % 57.3 % (38.7-73.9); Platelet Count 128 T/CUMM (130-400); Red Cell Distribution Width 14.2 % (9.3-17.3); White Blood Count 8.1 T/CUMM (4-12)
[2020-01-16 08:01] LABS: Calcium 7.7 MG/DL (8.5-10.1); Osmolality,Calculated 286.8 MOS/KG (273-304)
[2020-01-16] MEDS: PANTOPRAZOLE 40 MG VIAL IV SCH ×2 (08:49→21:18)
[2020-01-16] MEDS: DILTIAZEM CD 180 MG CAPSULE PO SCH (08:49)
[2020-01-16] MEDS: DIGOXIN 0.125 MG TABLET PO SCH (13:27)
[2020-01-16 14:38] LABS: Hemoglobin 7.9 GM/DL (12.0-16.0)
[2020-01-17 06:10] LABS: Basophils # 0.1 10*3/uL (0.0-0.2); Basophils % 0.6 % (0.0-0.8); Eosinophils # 0.1 10*3/uL (0.0-0.87); Eosinophils % 1.2 % (0.00-10.9); Hematocrit 21.1 VOL% (35.7-47.0); Hemoglobin 6.8 GM/DL (12.0-16.0); Immature Granulocytes % 0.6 %; Immature Granulocytes Absolute 0.05 #; Lymphocytes # 1.8 10*3/uL (1.4-4.0); Lymphocytes % 22.4 % (21.3-54.2); Mean Corpuscular HGB Conc 32.2 GM/DL (32-36); Mean Corpuscular Volume 94.2 FL (87-102); Mean Platelet Volume 9.7 FL (9.6-12.0); Monocytes % 8.3 % (1.7-12.7); Neutrophils % 66.9 % (38.7-73.9); Platelet Count 144 T/CUMM (130-400); Red Blood Count 2.24 MC/CUMM (3.8-5.5); Red Cell Distribution Width 14.6 % (9.3-17.3); White Blood Count 8.2 T/CUMM (4-12)
[2020-01-17 06:31] LABS: PT Patient Result 20.3 SECS (9.8-11.9)
[2020-01-17] MEDS: SODIUM CHLORIDE 0.9% 1,000 ML IV SCH (06:31)
[2020-01-17] MEDS: LEVOTHYROXINE 25 MCG TABLET PO SCH (06:31)
[2020-01-17 06:32] LABS: Calcium 7.5 MG/DL (8.5-10.1)
[2020-01-17] MEDS ORDERED: SODIUM CHLORIDE 0.9% 1,000 ML IV PRN (07:14)
[2020-01-17] MEDS: DILTIAZEM CD 180 MG CAPSULE PO SCH (08:08)
[2020-01-17] MEDS: PANTOPRAZOLE 40 MG VIAL IV SCH ×2 (08:08→21:20)
[2020-01-17] MEDS: DIGOXIN 0.125 MG TABLET PO SCH (12:34)
[2020-01-17] MEDS: SODIUM CHLORIDE 0.45% 1,000 ML IV SCH ×2 (14:14→21:58)
[2020-01-17 15:33] LABS: Hematocrit 25.3 VOL% (35.7-47.0); Platelet Count 121 T/CUMM (130-400)
[2020-01-17 15:36] LABS: Hemoglobin 8.5 GM/DL (12.0-16.0)
[2020-01-17 17:52] LABS: Hematocrit 29.2 VOL% (35.7-47.0); Hemoglobin 9.9 GM/DL (12.0-16.0)
[2020-01-18 00:49] LABS: Hematocrit 26.7 VOL% (35.7-47.0)
[2020-01-18] MEDS: LEVOTHYROXINE 25 MCG TABLET PO SCH (06:00)
[2020-01-18] MEDS: SODIUM CHLORIDE 0.45% 1,000 ML IV SCH ×2 (06:01→16:14)
[2020-01-18 06:28] LABS: Basophils % 0.6 % (0.0-0.8); Eosinophils # 0.3 10*3/uL (0.0-0.87); Eosinophils % 4.3 % (0.00-10.9); Hematocrit 24.2 VOL% (35.7-47.0); Hemoglobin 8.2 GM/DL (12.0-16.0); Immature Granulocytes % 0.4 %; Immature Granulocytes Absolute 0.03 #; Lymphocytes # 1.5 10*3/uL (1.4-4.0); Lymphocytes % 22.5 % (21.3-54.2); Mean Corpuscular HGB Conc 33.9 GM/DL (32-36); Mean Corpuscular Volume 91.3 FL (87-102); Mean Platelet Volume 9.9 FL (9.6-12.0); Neutrophils % 61.2 % (38.7-73.9); Platelet Count 126 T/CUMM (130-400); Red Blood Count 2.65 MC/CUMM (3.8-5.5); Red Cell Distribution Width 14.6 % (9.3-17.3); White Blood Count 6.7 T/CUMM (4-12)
[2020-01-18] MEDS: PANTOPRAZOLE 40 MG VIAL IV SCH ×2 (08:50→20:53)
[2020-01-18] MEDS: DILTIAZEM CD 180 MG CAPSULE PO SCH (08:50)
[2020-01-18] MEDS: POTASSIUM CHLORIDE 20 MEQ TABLET PO PRN ×3 (10:39→13:49)
[2020-01-18] MEDS: DIGOXIN 0.125 MG TABLET PO SCH (13:49)
[2020-01-19] MEDS: SODIUM CHLORIDE 0.45% 1,000 ML IV SCH ×2 (06:00→19:26)
[2020-01-19] MEDS: LEVOTHYROXINE 25 MCG TABLET PO SCH (06:01)
[2020-01-19 06:48] LABS: Basophils % 0.4 % (0.0-0.8); Eosinophils # 0.4 10*3/uL (0.0-0.87); Eosinophils % 4.6 % (0.00-10.9); Hematocrit 25.7 VOL% (35.7-47.0); Hemoglobin 8.7 GM/DL (12.0-16.0); Immature Granulocytes % 0.4 %; Immature Granulocytes Absolute 0.03 #; Lymphocytes # 1.7 10*3/uL (1.4-4.0); Lymphocytes % 21.1 % (21.3-54.2); Mean Corpuscular HGB Conc 33.9 GM/DL (32-36); Mean Corpuscular Volume 90.2 FL (87-102); Mean Platelet Volume 9.6 FL (9.6-12.0); Neutrophils % 63.5 % (38.7-73.9); Platelet Count 158 T/CUMM (130-400); Red Blood Count 2.85 MC/CUMM (3.8-5.5); White Blood Count 8.1 T/CUMM (4-12)
[2020-01-19 07:12] LABS: Calcium 8.2 MG/DL (8.5-10.1); Osmolality,Calculated 282.1 MOS/KG (273-304)
[2020-01-19] MEDS: PANTOPRAZOLE 40 MG VIAL IV SCH ×2 (08:53→21:00)
[2020-01-19] MEDS: POTASSIUM CHLORIDE 20 MEQ TABLET PO PRN ×2 (08:54→12:30)
[2020-01-19] MEDS: DILTIAZEM CD 180 MG CAPSULE PO SCH (08:54)
[2020-01-19] MEDS: DIGOXIN 0.125 MG TABLET PO SCH (14:01)
[2020-01-20] MEDS: SODIUM CHLORIDE 0.45% 1,000 ML IV SCH (05:57)
[2020-01-20 06:06] LABS: Basophils % 0.5 % (0.0-0.8); Eosinophils # 0.3 10*3/uL (0.0-0.87); Eosinophils % 4.3 % (0.00-10.9); Hematocrit 25.7 VOL% (35.7-47.0); Hemoglobin 8.4 GM/DL (12.0-16.0); Immature Granulocytes % 0.4 %; Immature Granulocytes Absolute 0.03 #; Lymphocytes # 1.6 10*3/uL (1.4-4.0); Mean Corpuscular HGB Conc 32.7 GM/DL (32-36); Mean Corpuscular Volume 94.1 FL (87-102); Mean Platelet Volume 9.8 FL (9.6-12.0); Monocytes % 10.4 % (1.7-12.7); Neutrophils % 63.4 % (38.7-73.9); Platelet Count 172 T/CUMM (130-400); Red Blood Count 2.73 MC/CUMM (3.8-5.5); Red Cell Distribution Width 15.5 % (9.3-17.3); White Blood Count 7.6 T/CUMM (4-12)
[2020-01-20] MEDS: LEVOTHYROXINE 25 MCG TABLET PO SCH (06:15)
[2020-01-20 06:53] LABS: Calcium 8.7 MG/DL (8.5-10.1); Osmolality,Calculated 281.3 MOS/KG (273-304)
[2020-01-20] MEDS: DILTIAZEM CD 180 MG CAPSULE PO SCH (08:42)
[2020-01-20] MEDS: PANTOPRAZOLE 40 MG VIAL IV SCH (08:42)
[2020-01-20 11:55] VITALS: BP 142/60
== END 2020-01-20 12:43 | disposition home or self-care (01) | DRG 378 ==
LOC: N.ED 17:08 → N.EDINP 01-15 00:16 → SUATTDRO 01-15 00:16 → N.CLINP 01-15 00:46 → N.TELEN 01-17 16:17
PROVIDERS: ADMIT Internal Medicine Geriatric Medicine; ATTEND Internal Medicine Geriatric Medicine

== ENCOUNTER 2021-09-07 08:35 | Inpatient (IN) ==
[2021-09-07] MEDS ORDERED: methylPREDNISolone SOD SUC 125 MG/2 ML VIAL IV STA (10:01)
[2021-09-07] MEDS ORDERED: ALBUTEROL/IPRATROPIUM 3 ML NEB RESP TX STA (10:01)
[2021-09-07 10:42] LABS: Hematocrit 36.9 VOL% (35.7-47.0); Hemoglobin 11.5 GM/DL (12.0-16.0); Immature Granulocytes % 0.6 %; Immature Granulocytes Absolute 0.03 #; Lymphocytes # 0.6 10*3/uL (1.4-4.0); Lymphocytes % 11.4 % (21.3-54.2); Mean Corpuscular HGB Conc 31.2 GM/DL (32-36); Mean Corpuscular Volume 80.9 FL (87-102); Mean Platelet Volume 9.5 FL (9.6-12.0); Monocytes % 8.8 % (1.7-12.7); Neutrophils % 79.2 % (38.7-73.9); Platelet Count 184 T/CUMM (130-400); Red Blood Count 4.56 MC/CUMM (3.8-5.5); Red Cell Distribution Width 17.1 % (9.3-17.3); White Blood Count 5.1 T/CUMM (4-12)
[2021-09-07 10:55] LABS: INR 2.8; Partial Thromboplastin Time 52.4 SECS (23.8-32.1)
[2021-09-07 11:03] LABS: Band Neutrophils 2 % (0-10); Lymphocytes 17 % (20-55); Platelet Estimate Adequate; Segmented Neutrophils 75 % (50-85); Total Cells Counted 100
[2021-09-07 11:14] LABS: Albumin 2.8 G/DL (3.4-5.0); Bilirubin,Total 0.4 MG/DL (0.20-1.00); Calcium 7.9 MG/DL (8.5-10.1); Osmolality,Calculated 273.8 MOS/KG (273-304); Potassium 3.7 MMOL/L (3.5-5.1); Total Protein 6.9 G/DL (6.4-8.2)
[2021-09-07] MEDS ORDERED: LEVOFLOXACIN INJ 750 MG/150 ML PREMIX IV STA (11:55)
[2021-09-07] MEDS ORDERED: ONDANSETRON 4 MG/2 ML VIAL IV PRN (13:10)
[2021-09-07] MEDS ORDERED: GLUCAGON 1 MG VIAL IM PRN (13:10)
[2021-09-07] MEDS ORDERED: ACETAMINOPHEN 325 MG TABLET PO PRN (13:10)
[2021-09-07] MEDS ORDERED: DEXTROSE 50% 25 GM/50 ML SYRINGE IV PRN (13:10)
[2021-09-07] MEDS ORDERED: FUROSEMIDE 40 MG/4 ML VIAL IV ONE (13:20)
[2021-09-07] MEDS ORDERED: DIGOXIN 0.125 MG TABLET PO SCH (13:26)
[2021-09-07] MEDS ORDERED: DILTIAZEM 50 MG/10 ML VIAL IV STA (15:35)
[2021-09-07] MEDS ORDERED: DILTIAZEM INJ 100 MG in SODIUM CHLORIDE 0.9% 100 ML IV SCH (16:00)
[2021-09-07] MEDS: FERROUS SULFATE 325 MG TABLET PO SCH (18:15)
[2021-09-07] MEDS ORDERED: FUROSEMIDE 40 MG/4 ML VIAL IV SCH (21:00)
[2021-09-08 05:18] LABS: Basophils % 0.3 % (0.0-0.8); Hematocrit 38.5 VOL% (35.7-47.0); Hemoglobin 12.1 GM/DL (12.0-16.0); Immature Granulocytes % 0.7 %; Immature Granulocytes Absolute 0.05 #; Lymphocytes # 0.7 10*3/uL (1.4-4.0); Lymphocytes % 10.5 % (21.3-54.2); Mean Corpuscular HGB Conc 31.4 GM/DL (32-36); Mean Corpuscular Volume 81.2 FL (87-102); Mean Platelet Volume 9.8 FL (9.6-12.0); Monocytes % 4.5 % (1.7-12.7); Platelet Count 194 T/CUMM (130-400); Red Blood Count 4.74 MC/CUMM (3.8-5.5); Red Cell Distribution Width 17.2 % (9.3-17.3); White Blood Count 6.9 T/CUMM (4-12)
[2021-09-08 05:28] LABS: PT Patient Result 30.9 SECS (10.5-12.0)
[2021-09-08 05:51] LABS: Hypochromasia Slight; Lymphocytes 9 % (20-55); Microcytosis Slight; Platelet Estimate Adequate; Segmented Neutrophils 88 % (50-85); Total Cells Counted 100
[2021-09-08 05:56] LABS: % Iron Saturation 6.8 % (18-50); Albumin 2.2 G/DL (3.4-5.0); Bilirubin,Total 0.7 MG/DL (0.20-1.00); Calcium 7.9 MG/DL (8.5-10.1); Ferritin 124.3 ng/mL (8-252); Osmolality,Calculated 285.1 MOS/KG (273-304); Potassium 3.8 MMOL/L (3.5-5.1); Total Protein 6.9 G/DL (6.4-8.2)
[2021-09-08] MEDS ORDERED: DIGOXIN 0.125 MG TABLET PO SCH (09:00)
[2021-09-08] MEDS: FERROUS SULFATE 325 MG TABLET PO SCH ×2 (10:14→16:02)
[2021-09-08] MEDS: WARFARIN 2 MG TABLET PO SCH (10:14)
[2021-09-08] MEDS: DILTIAZEM CD 120 MG CAPSULE PO SCH ×2 (10:15→21:20)
[2021-09-08] MEDS: DIGOXIN 0.25 MG TABLET PO SCH (12:41)
[2021-09-08] MEDS: ALBUTEROL/IPRATROPIUM 3 ML NEB RESP TX SCH ×2 (13:05→20:18)
[2021-09-09] MEDS: ALBUTEROL/IPRATROPIUM 3 ML NEB RESP TX SCH ×4 (01:02→19:40)
[2021-09-09 05:09] LABS: INR 2.9
[2021-09-09 06:58] LABS: Basophils % 0.1 % (0.0-0.8); Hematocrit 36.7 VOL% (35.7-47.0); Hemoglobin 11.2 GM/DL (12.0-16.0); Immature Granulocytes % 0.5 %; Immature Granulocytes Absolute 0.05 #; Lymphocytes # 0.9 10*3/uL (1.4-4.0); Lymphocytes % 8.7 % (21.3-54.2); Mean Corpuscular HGB Conc 30.5 GM/DL (32-36); Mean Corpuscular Volume 81.7 FL (87-102); Neutrophils % 84.7 % (38.7-73.9); Platelet Count 219 T/CUMM (130-400); Red Blood Count 4.49 MC/CUMM (3.8-5.5); Red Cell Distribution Width 17.2 % (9.3-17.3); White Blood Count 10.1 T/CUMM (4-12)
[2021-09-09 07:10] LABS: Calcium 8.2 MG/DL (8.5-10.1); Osmolality,Calculated 286.3 MOS/KG (273-304); Potassium 3.2 MMOL/L (3.5-5.1)
[2021-09-09] MEDS: POTASSIUM CHLORIDE 20 MEQ TABLET PO PRN ×4 (09:08→14:58)
[2021-09-09] MEDS: WARFARIN 2 MG TABLET PO SCH (09:08)
[2021-09-09] MEDS: DILTIAZEM CD 120 MG CAPSULE PO SCH ×2 (09:08→21:22)
[2021-09-09] MEDS: FUROSEMIDE 40 MG TABLET PO SCH (09:08)
[2021-09-09] MEDS: FERROUS SULFATE 325 MG TABLET PO SCH ×2 (09:08→17:18)
[2021-09-09] MEDS: DIGOXIN 0.25 MG TABLET PO SCH (12:57)
[2021-09-10] MEDS: ALBUTEROL/IPRATROPIUM 3 ML NEB RESP TX SCH ×4 (00:44→20:23)
[2021-09-10 05:03] LABS: Basophils % 0.4 % (0.0-0.8); Hematocrit 36.5 VOL% (35.7-47.0); Hemoglobin 11.3 GM/DL (12.0-16.0); Immature Granulocytes Absolute 0.08 #; Lymphocytes # 1.3 10*3/uL (1.4-4.0); Lymphocytes % 15.7 % (21.3-54.2); Mean Corpuscular Volume 82.8 FL (87-102); Monocytes % 9.4 % (1.7-12.7); Neutrophils % 73.5 % (38.7-73.9); Platelet Count 232 T/CUMM (130-400); Red Blood Count 4.41 MC/CUMM (3.8-5.5); Red Cell Distribution Width 17.4 % (9.3-17.3); White Blood Count 8.4 T/CUMM (4-12)
[2021-09-10 05:09] LABS: PT Patient Result 31.4 SECS (10.5-12.0)
[2021-09-10 05:28] LABS: Calcium 8.1 MG/DL (8.5-10.1); Osmolality,Calculated 291.7 MOS/KG (273-304); Potassium 4.2 MMOL/L (3.5-5.1)
[2021-09-10] MEDS: FERROUS SULFATE 325 MG TABLET PO SCH ×2 (08:41→16:21)
[2021-09-10] MEDS: FUROSEMIDE 40 MG TABLET PO SCH (08:41)
[2021-09-10] MEDS: DILTIAZEM CD 120 MG CAPSULE PO SCH ×2 (08:41→21:32)
[2021-09-10] MEDS: WARFARIN 2 MG TABLET PO SCH (08:42)
[2021-09-10] MEDS ORDERED: methylPREDNISolone SOD SUC 125 MG/2 ML VIAL IV ONE (09:34)
[2021-09-10] MEDS: AMOXICILLIN/CLAV 500 MG TABLET PO SCH ×2 (10:24→21:31)
[2021-09-10] MEDS: methylPREDNISolone 4 MG TABLET PO SCH ×2 (14:37→21:32)
[2021-09-10] MEDS: DIGOXIN 0.25 MG TABLET PO SCH (14:37)
[2021-09-11] MEDS: ALBUTEROL/IPRATROPIUM 3 ML NEB RESP TX SCH ×2 (01:41→07:03)
[2021-09-11 06:07] LABS: Basophils % 0.2 % (0.0-0.8); Hematocrit 38.4 VOL% (35.7-47.0); Hemoglobin 11.8 GM/DL (12.0-16.0); Immature Granulocytes % 1.4 %; Immature Granulocytes Absolute 0.13 #; Lymphocytes # 0.6 10*3/uL (1.4-4.0); Lymphocytes % 6.9 % (21.3-54.2); Mean Corpuscular HGB Conc 30.7 GM/DL (32-36); Mean Platelet Volume 9.9 FL (9.6-12.0); Monocytes % 3.4 % (1.7-12.7); Neutrophils % 88.1 % (38.7-73.9); Platelet Count 286 T/CUMM (130-400); Red Blood Count 4.74 MC/CUMM (3.8-5.5); Red Cell Distribution Width 17.2 % (9.3-17.3); White Blood Count 9.1 T/CUMM (4-12)
[2021-09-11 06:11] LABS: INR 4.5; PT Patient Result 45.8 SECS (10.5-12.0)
[2021-09-11 06:14] LABS: Calcium 8.6 MG/DL (8.5-10.1); Potassium 4.3 MMOL/L (3.5-5.1)
[2021-09-11 08:30] VITALS: BP 134/73
[2021-09-11] MEDS: DILTIAZEM CD 120 MG CAPSULE PO SCH (08:40)
[2021-09-11] MEDS: methylPREDNISolone 4 MG TABLET PO SCH (08:40)
[2021-09-11] MEDS: AMOXICILLIN/CLAV 500 MG TABLET PO SCH (08:40)
[2021-09-11] MEDS: FUROSEMIDE 40 MG TABLET PO SCH (08:41)
[2021-09-11] MEDS: FERROUS SULFATE 325 MG TABLET PO SCH (08:41)
== END 2021-09-11 10:05 | disposition swing bed (61) | DRG 291 ==
LOC: N.ED 08:35 → SUATTDRO 13:06 → N.EDINP 13:06 → N.TELES 17:47
PROVIDERS: ADMIT Internal Medicine; ATTEND Hospitalist